=== PATIENT | male | born 1955 | race Caucasian/White ===

== ENCOUNTER 2020-07-17 14:53 | Inpatient (IN) | payer MEDICAID ==
[~2020-07-17] VITALS: Ht 182.9 cm; Wt 129.6 kg
[~2020-07-17 14:53] MED LIST: ATOR10TA70 PO; CARV6.252 PO; LISI40TA13 PO; METO-292 PO; MONT10TA32 PO; POLY17PO10 PO
[2020-07-17] MEDS ORDERED: aspirin 81mg tab.chew PO ONE (15:05)
[2020-07-17 16:03] LABS: BASOPHILS % (AUTO) 0.3 % (0-1); EOSINOPHILS # (AUTO) 0.2 X10'3 (0-0.9); EOSINOPHILS % (AUTO) 3.1 % (0-6); HEMOGLOBIN 15.1 g/dl (14.0-17.9); LYMPHOCYTES # (AUTO) 1.3 X10'3 (1.1-4.8); LYMPHOCYTES % (AUTO) 19.7 % (21-51); MEAN CORPUSCULAR HEMOGLOBIN 32.4 PG (27.0-31.0); MEAN CORPUSCULAR HGB CONC 33.5 g/dL (33.0-36.5); MEAN CORPUSCULAR VOLUME 96.7 FL (78-98); MONOCYTES # (AUTO) 0.5 X10'3 (0-0.9); MONOCYTES % (AUTO) 7.3 % (2-12); NEUTROPHILS # (AUTO) 4.7 X10'3 (1.8-7.7); NEUTROPHILS % (AUTO) 69.6 % (42-75); PLATELET COUNT 237 X10'3 (140-440); RED BLOOD COUNT 4.66 X10'6 (4.70-6.10); RED CELL DISTRIBUTION WIDTH 15.5 % (11.5-14.5); WHITE BLOOD COUNT 6.7 X10'3 (4.5-11.0)
[2020-07-17 16:19] LABS: ALANINE AMINOTRANSFERASE 68 U/L (12-78); ALBUMIN 4.1 G/DL (3.4-5.0); ALBUMIN/GLOBULIN RATIO 1.3 (1.1-1.5); ALKALINE PHOSPHATASE 62 IU/L (46-116); ANION GAP 10 (8-16); ASPARTATE AMINO TRANSFERASE 25 U/L (10-37); BILIRUBIN,TOTAL 0.3 MG/DL (0.1-1.0); BLOOD UREA NITROGEN 11 MG/DL (7-18); BUN/CREATININE RATIO 12.2 (5.4-32.0); CHLORIDE 105 MMOL/L (99-107); GLUCOSE 131 MG/DL (70-104); POTASSIUM 3.8 MMOL/L (3.5-5.1); SODIUM 142 MMOL/L (135-145); TOTAL CARBON DIOXIDE 27.5 MMOL/L (24-32); TOTAL PROTEIN 7.3 G/DL (6.4-8.2); eGFR 85 ML/MIN
[2020-07-17 16:27] LABS: MAGNESIUM 2.4 MG/DL (1.5-2.4)
[2020-07-17] MEDS ORDERED: ALBU8.5H8 (17:18)
[2020-07-17] MEDS ORDERED: AMLO5TAB16 PO (17:18)
[2020-07-17] MEDS ORDERED: CETI-91 PO (17:18)
[2020-07-17] MEDS ORDERED: MONT10TA21 PO (17:18)
[2020-07-17] MEDS ORDERED: CARV12.545 PO (17:18)
[2020-07-17] MEDS ORDERED: morphine 2 MG/ML inj. syringe IV PRN ×2 (17:50)
[2020-07-17] MEDS ORDERED: magnesium hydroxide 30ml (MOM) UD suspension PO PRN (17:50)
[2020-07-17] MEDS ORDERED: mag hydrox/Alum hydrox/simeth 30ml oral suspension PO PRN (17:50)
[2020-07-17] MEDS ORDERED: ondansetron/PF 4mg/2ml inj IV PRN (17:50)
[2020-07-17] MEDS ORDERED: acetaminophen 325mg tablet PO PRN ×2 (17:50)
[2020-07-17] MEDS ORDERED: HYDROcodone/acetaminophen 5mg/325mg tablet PO PRN (17:50)
[2020-07-17] MEDS ORDERED: furosemide 10 MG/1 ML 10ml inj IV ONE (17:50)
--- NOTE | 2020-07-17 18:09 | NUR ---
HUSSAIN GIRLFRIEND [phone]
[2020-07-17 18:50] LABS: D-DIMER 0.34 MG/L FEU (0-0.50)
--- NOTE | 2020-07-17 19:19 | NUR ---
Pt given lasix, urinal, and call light.
[2020-07-17] MEDS: carVEDilol 12.5mg tablet PO SCH (19:59)
[2020-07-17] MEDS: nitroGLYCERIN 0.4mg SUBLingual tab SL PRN (20:01)
--- NOTE | 2020-07-17 20:16 | NUR ---
Patient in room ED 1. I have received report from Brook BURRIS and had the opportunity to ask questions and assume patient care.
[2020-07-17 21:00] VITALS: BP 139/91
[2020-07-18] VITALS (7 sets, daily range): BP systolic 125–177; BP diastolic 80–103
[2020-07-18] MEDS: nitroGLYCERIN 0.4mg SUBLingual tab SL PRN (02:09)
--- NOTE | 2020-07-18 02:23 | NUR ---
Patient woke up at 0200 stating he was short of breath and having 6/10 chest pressure on his left side. The pain was not radiating. An EKG was obtained, SL nitro given. Patients o2 saturation was 91-92% on room air. 2 liters nasal cannula applied. Dr. Butler notified and ordered 81mg aspirin daily.
[2020-07-18 03:36] LABS: BASOPHILS % (AUTO) 0.6 % (0-1); EOSINOPHILS # (AUTO) 0.2 X10'3 (0-0.9); HEMATOCRIT 44.1 % (42.0-52.0); HEMOGLOBIN 14.7 g/dl (14.0-17.9); LYMPHOCYTES # (AUTO) 1.4 X10'3 (1.1-4.8); LYMPHOCYTES % (AUTO) 21.1 % (21-51); MEAN CORPUSCULAR HEMOGLOBIN 32.5 PG (27.0-31.0); MEAN CORPUSCULAR HGB CONC 33.4 g/dL (33.0-36.5); MEAN CORPUSCULAR VOLUME 97.2 FL (78-98); MEAN PLATELET VOLUME 7.3 FL (7.4-10.4); MONOCYTES # (AUTO) 0.6 X10'3 (0-0.9); MONOCYTES % (AUTO) 9.3 % (2-12); NEUTROPHILS # (AUTO) 4.3 X10'3 (1.8-7.7); PLATELET COUNT 220 X10'3 (140-440); RED BLOOD COUNT 4.54 X10'6 (4.70-6.10); RED CELL DISTRIBUTION WIDTH 15.6 % (11.5-14.5); WHITE BLOOD COUNT 6.5 X10'3 (4.5-11.0)
[2020-07-18 03:39] LABS: ALBUMIN 3.7 G/DL (3.4-5.0); ANION GAP 6 (8-16); BLOOD UREA NITROGEN 18 MG/DL (7-18); CALCIUM 9.1 MG/DL (8.5-10.1); CHLORIDE 106 MMOL/L (99-107); GLUCOSE 124 MG/DL (70-104); POTASSIUM 3.8 MMOL/L (3.5-5.1); SODIUM 144 MMOL/L (135-145); TOTAL CARBON DIOXIDE 31.7 MMOL/L (24-32); eGFR 75 ML/MIN
--- NOTE | 2020-07-18 06:10 | NUR ---
Problems reprioritized. Patient report given, questions answered & plan of care reviewed with Rox BURRIS.
--- NOTE | 2020-07-18 06:43 | NUR ---
Patient in room PCU 3023. I have received report from Jayy BURRIS and had the opportunity to ask questions and assume patient care.
[2020-07-18] MEDS: amLODIPine 5mg tablet PO SCH (07:45)
[2020-07-18] MEDS: montelukast 10mg tablet PO SCH (07:45)
[2020-07-18] MEDS: aspirin 81mg tablet.DR PO SCH (07:46)
[2020-07-18] MEDS: cetirizine 10mg tablet PO SCH (07:46)
[2020-07-18] MEDS: carVEDilol 12.5mg tablet PO SCH ×2 (07:46→19:27)
[2020-07-18] MEDS ORDERED: aspirin 81mg tablet.DR PO SCH (08:00)
[2020-07-18] MEDS ORDERED: aspirin 81mg tab.chew PO SCH (08:30)
--- NOTE | 2020-07-18 08:49 | NUR ---
Paged Dr. Knight PAGER ID: [phone] MESSAGE: Re: Brown Wang RM [id number]. Pt is NPO and asking if a twyla was going to be done today. No order at this time. Please advise, Rox BURRIS [phone]
--- NOTE | 2020-07-18 09:00 | NUR ---
Dr. Knight at bedside with nurse and patient. was made aware of tele being DCD and would like Tele to be continued, DC stool softeners, Wound consult ordered. Will continue to monitor. Addendum: 07/18/20 at 0902 by Rox Hernandez RN Wrong patient.
--- NOTE | 2020-07-18 09:02 | NUR ---
Dr. Knight at bedside with patient and nurse. MD made aware of possible Nicole, No nicole indicated, Oxygen orders are to keep above 90%, MD would like a tele neuro for possible narcolepsy, and a sleep study for sleep apnea. New order to add [facility] Healthy and to DC NPO. We will continue to monitor.
[2020-07-18 09:31] LABS: HEMOGLOBIN A1C 6.3 % (4.5-6.2)
[2020-07-18] MEDS ORDERED: pneumococcal 23-VAL P-sac vacc 25 mcg/0.5ml vial IMVAC ONE (10:00)
[2020-07-18] MEDS: furosemide 40mg/4ml inj IV SCH ×2 (12:30→19:27)
--- NOTE | 2020-07-18 14:22 | NUR ---
Created Tele account for tele consult. We will continue to monitor. A new connect request was successfully created for: Brown Wang : 1955 ConnectID: [id number] REASON: Other Reason ACUITY: Acuity Level 4 SUBMITTED: 07/18/2020 14:22 PDT
--- NOTE | 2020-07-18 17:03 | NUR ---
Spoke with Naida at [facility]. She stated that consult was completed and that the report will be uploaded soon.
--- NOTE | 2020-07-18 18:00 | NUR ---
Patient in room PCU 3014. I have received report from Rox BURRIS and had the opportunity to ask questions and assume patient care
[2020-07-19 02:00] VITALS: BP 119/73
--- NOTE | 2020-07-19 05:57 | NUR ---
Problems reprioritized. Patient report given, questions answered & plan of care reviewed with randell rn.
--- NOTE | 2020-07-19 06:00 | NUR ---
Patient in room PCU 3023. I have received report from REYNA BURRIS and had the opportunity to ask questions and assume patient care.
[2020-07-19 07:12] VITALS: BP 141/77
[2020-07-19 07:19] LABS: BASOPHILS % (AUTO) 0.3 % (0-1); EOSINOPHILS # (AUTO) 0.2 X10'3 (0-0.9); EOSINOPHILS % (AUTO) 2.6 % (0-6); HEMATOCRIT 46.4 % (42.0-52.0); HEMOGLOBIN 15.6 g/dl (14.0-17.9); LYMPHOCYTES # (AUTO) 1.3 X10'3 (1.1-4.8); LYMPHOCYTES % (AUTO) 19.6 % (21-51); MEAN CORPUSCULAR HEMOGLOBIN 32.7 PG (27.0-31.0); MEAN CORPUSCULAR HGB CONC 33.6 g/dL (33.0-36.5); MEAN CORPUSCULAR VOLUME 97.4 FL (78-98); MONOCYTES # (AUTO) 0.5 X10'3 (0-0.9); MONOCYTES % (AUTO) 7.8 % (2-12); NEUTROPHILS # (AUTO) 4.5 X10'3 (1.8-7.7); NEUTROPHILS % (AUTO) 69.7 % (42-75); PLATELET COUNT 201 X10'3 (140-440); RED BLOOD COUNT 4.76 X10'6 (4.70-6.10); RED CELL DISTRIBUTION WIDTH 15.6 % (11.5-14.5); WHITE BLOOD COUNT 6.5 X10'3 (4.5-11.0)
[2020-07-19 07:24] LABS: ALBUMIN 3.8 G/DL (3.4-5.0); ANION GAP 5 (8-16); BLOOD UREA NITROGEN 16 MG/DL (7-18); BUN/CREATININE RATIO 16.7 (5.4-32.0); CALCIUM 8.8 MG/DL (8.5-10.1); CHLORIDE 103 MMOL/L (99-107); CREATININE 0.96 MG/DL (0.60-1.10); GLUCOSE 124 MG/DL (70-104); POTASSIUM 3.9 MMOL/L (3.5-5.1); SODIUM 141 MMOL/L (135-145); TOTAL CARBON DIOXIDE 32.6 MMOL/L (24-32); eGFR 79 ML/MIN
[2020-07-19] MEDS: aspirin 81mg tablet.DR PO SCH (08:27)
[2020-07-19] MEDS: carVEDilol 12.5mg tablet PO SCH (08:27)
[2020-07-19] MEDS: montelukast 10mg tablet PO SCH (08:27)
[2020-07-19] MEDS: furosemide 40mg/4ml inj IV SCH (08:27)
[2020-07-19] MEDS: cetirizine 10mg tablet PO SCH (08:27)
[2020-07-19 08:28] VITALS: BP_SYST 141
[2020-07-19] MEDS: amLODIPine 5mg tablet PO SCH (08:28)
[2020-07-19] MEDS ORDERED: FURO40TA4 PO (09:00)
--- NOTE | 2020-07-19 10:56 | NUR ---
PT RECEIVED DC INSTRUCTIONS AND VERBALIZED UNDERSTANDING OF DC INSTRUCTIONS. PT AMBULATED TO LOBBY IN ZERO DISTRESS. IV REMOVED AND HEART MONITOR REMOVED. PT LEFT WITH ALL HIS BELONGINGS
== END 2020-07-19 11:21 | disposition home or self-care (01) | DRG 194 ==
LOC: ER 14:53 → ED HOLD 18:24 → OBSVTOIN 18:24 → PCU 3S 20:50
PROVIDERS: ADMIT Internal Medicine; ATTEND Internal Medicine
PROC: 3E0234Z Introduction of Serum, Toxoid and Vaccine into Muscle, Percutaneous Approach (ICD-10-PCS; principal; 2020-07-18)
DX: I11.0 Hypertensive heart disease with heart failure (principal); I26.09 Other pulmonary embolism with acute cor pulmonale; E11.9 Type 2 diabetes mellitus without complications; I50.813 Acute on chronic right heart failure; G47.30 Sleep apnea, unspecified; R55 Syncope and collapse; Z79.899 Other long term (current) drug therapy; Z23 Encounter for immunization
CPT/HCPCS: 36415; 71045; 80048; 80053; 82948; 83036; 83735; 83880; 84443; 84484; 85025; 85379; 87081; 90732; 93005; 93306; 99285; G0378; J1940